=== PATIENT | male | born 1950 | race Caucasian/White ===

== ENCOUNTER 2019-05-15 19:56 | Emergency (ER) | payer MEDICARE, BC ==
[~2019-05-15] VITALS: Ht 177.8 cm; Wt 100.0 kg
--- NOTE | 2019-05-15 20:16 | ED Chest Pain ---
General Stated Complaint: CHEST PAIN Source: patient, EMS History of Present Illness Date Seen by Provider: May 15, 2019 Time Seen by Provider: 19:57 Initial Comments 68 yo M presents with substernal chest pain that is an aching pain. 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 He denies doing anything prior to onset of pain and was just sitting at rest when the pain came on. He did take 2 aspirin at home when the pain started. He denies anything making the pain worse. He has had the pain easing up since onset. He has no nausea and no shortness of breath. He did have a tooth extraction yesterday but states he is not taking any medicine for that. he has no cardiac history and denies any history of hypertension or diabetes. he reports a hx of seizures that he takes ativan for but has not had a seizure for a long time. Jamie bruce follows with Sera Can APRN in the [facility] clinic for routine care. He has a family hx of CAD in his father who lived to be 93 yo before he . Allergies and Home Medications Allergies Coded Allergies: No Known Drug Allergies (Unverified , 05/15/19) Patient Home Medication List Home Medication List Reviewed: Yes Review of Systems Review of Systems Constitutional: No chills, No fever, No malaise EENTM: See HPI Respiratory: No Symptoms Reported Cardiovascular: See HPI Gastrointestinal: No Symptoms Reported Genitourinary: No Symptoms Reported Musculoskeletal: no symptoms reported Skin: no symptoms reported Psychiatric/Neurological: No Symptoms Reported Past [id number] Hx Past Med/Social Hx: Reviewed Nursing Past Med/Soc Hx Patient Social History Recent Foreign Travel: No Contact w/Someone Who Travel: No Past Medical History Surgeries: Yes (dental extraction) Neurological: Yes Seizure Disorder Family Medical History CAD Over 55 Years Old Physical Exam Vital Signs Vital Signs - First Documented Capillary Refill : Height, Weight, BMI Height: '" Weight: lbs. oz. kg; BMI Method: General Appearance: No Apparent Distress, WD/WN HEENT: PERRL/EOMI, Other (healing dental extraction where he had tooth #12 removed) Neck: Non Tender, Supple; No Carotid Bruit Respiratory: Chest Non Tender, Lungs Clear, Normal Breath Sounds, No Accessory Muscle Use, No Respiratory Distress Cardiovascular: Regular Rate, Rhythm, Normal Peripheral Pulses Gastrointestinal: Normal Bowel Sounds, Non Tender, Soft Extremity: Normal Capillary Refill, Non Tender, No Calf Tenderness, No Pedal Edema Neurologic/Psychiatric: Alert, Oriented x3 Skin: Normal Color, Warm/Dry Progress/Results/Core Measures Results/Orders Lab Results Laboratory Tests Test 05/15/19 20:12 Range/Units White Blood Count 9.3 4.3-11.0 10^3/uL Red Blood Count 5.16 4.35-5.85 10^6/uL Hemoglobin 16.5 13.3-17.7 G/DL Hematocrit 47 40-54 % Mean Corpuscular Volume 90 80-99 FL Mean Corpuscular Hemoglobin 32 25-34 PG Mean Corpuscular Hemoglobin Concent 35 32-36 G/DL Red Cell Distribution Width 12.3 10.0-14.5 % Platelet Count 211 130-400 10^3/uL Mean Platelet Volume 10.3 7.4-10.4 FL Neutrophils (%) (Auto) 60 42-75 % Lymphocytes (%) (Auto) 30 12-44 % Monocytes (%) (Auto) 7 0-12 % Eosinophils (%) (Auto) 3 0-10 % Basophils (%) (Auto) 0 0-10 % Neutrophils # (Auto) 5.6 1.8-7.8 X 10^3 Lymphocytes # (Auto) 2.8 1.0-4.0 X 10^3 Monocytes # (Auto) 0.6 0.0-1.0 X 10^3 Eosinophils # (Auto) 0.3 0.0-0.3 10^3/uL Basophils # (Auto) 0.0 0.0-0.1 10^3/uL Prothrombin Time 12.4 12.2-14.7 SEC INR Comment 0.9 0.8-1.4 Activated Partial Thromboplast Time 26 24-35 SEC Sodium Level 139 135-145 MMOL/L Potassium Level 3.8 3.6-5.0 MMOL/L Chloride Level 104 98-107 MMOL/L Carbon Dioxide Level 21 21-32 MMOL/L Anion Gap 14 5-14 MMOL/L Blood Urea Nitrogen 16 7-18 MG/DL Creatinine 0.89 0.60-1.30 MG/DL Estimat Glomerular Filtration Rate > 60 BUN/Creatinine Ratio 18 Glucose Level 121 H 70-105 MG/DL Calcium Level 9.9 8.5-10.1 MG/DL Corrected Calcium 9.5 8.5-10.1 MG/DL Magnesium Level 2.0 1.6-2.4 MG/DL Total Bilirubin 0.4 0.1-1.0 MG/DL Aspartate Amino Transf (AST/SGOT) 29 5-34 U/L Alanine Aminotransferase (ALT/SGPT) 25 0-55 U/L Alkaline Phosphatase 52 40-136 U/L Troponin I < 0.30 <0.30 NG/ML Pro-B-Type Natriuretic Peptide < 75.0 <75.0 PG/ML Total Protein 7.7 6.4-8.2 GM/DL Albumin 4.5 3.2-4.5 GM/DL My Orders Orders - GEMA JACKSON MD Cbc With Automated Diff (05/15/19 20:09) Magnesium (05/15/19 20:) Ekg Tracing (05/15/19 20:09) Comprehensive Metabolic Panel (05/15/19 20:) Protime With Inr (05/15/19 20:) Partial Thromboplastin Time (05/15/19 20:) Monitor-Rhythm Ecg Trace Only (05/15/19 20:09) Ed Iv/Invasive Line Start (05/15/19 20:09) Troponin I Fs (05/15/19 20:09) Probnp Fs (05/15/19 20:09) Vital Signs/I&O 05/15/19 05/15/19 05/15/19 19:58 19:58 21:28 Temp 36.3 35.9 Pulse 61 56 Resp 18 18 B/P (MAP) 168/82 (110) 156/90 (110) Pulse Ox 98 98 O2 Delivery Room Air Room Air Room Air Progress Progress Note #1: Progress Note Order basic tests to evaluate for his chest aching and pain. pt states he was not going to come to the ED after finding out that his ECG was ok at home by EMS but because his bp was elevated he decided to come be evaluated. Initially his chest aching was around 5/10 and now is down to 2 or 3 out of 10 in intensity. Ordered labs including cardiac enzymes, ECG and CXR to evaluate for his heart and lungs to look for reasons why he would be having pain and might be having elevated blood pressure. After placing the orders the patient refused the chest x-ray as part of his work up for his evaluation of chest pain and elevated blood pressure. Progress Note #2: Progress Note reviewed results with pt that his labs did not show elevated troponin and ECG was not showing acute MD or need to vela to a cathode builder but I did not have an e xplanation for his chest aching or elevated blood pressure without doing further testing. I could check to see if he had any change with repeating enzymes after more time or try treating for GI source of pain to see if that changed his symptoms and bp but pt refused. He was reassured that the initial testing looked ok and was wanting to go home. I counseled him to return if he had further symptoms or more problems, especially if he started sweating with the pain, having n/v or pain radiating to other areas such as his back, arm, neck or jaw. Follow up with pcp for continued concerns and check his pressure at home or through pharmacy bp cuffs. Return or seek medical care for worsening or new or recurent symptoms. Initial ECG Impression Date: May 15, 2019 Initial ECG Impression Time: 20:10 Initial ECG Rate: 58 Initial ECG Rhythm: Normal Sinus Initial ECG Comparisson: No Previous ECG Available Comment Normal sinus rhythm with a heart rate of 58 beats for minute. He has an incomplete left bundle-branch block. He has a OK interval of 179 ms. QT interval 424 ms QTc interval 417 ms. There is no acute ST elevation. He has no prior tracing available for comparison. Departure Impression Primary Impression: Atypical chest pain Additional Impression: Elevated blood pressure reading Disposition: 01 HOME, SELF-CARE Condition: Stable Departure-Patient Inst. Decision time for Depature: 21:27 Referrals: NO,LOCAL PHYSICIAN (PCP) Primary Care Physician [facility] Patient Instructions: Chest Pain (DC), High Blood Pressure (DC) Add. Discharge Instructions: Try medicine for acid reflux at home. If the pain worsens or is not improving then return or seek medical care for rec heck Follow up with Sera Can in the clinic for recheck GEMA JACKSON MD May 15, 2019 20:16
[2019-05-15 20:19] LABS: BASOPHILS % (AUTO) 0 % (0-10); EOSINOPHILS # (AUTO) 0.3 10^3/uL (0.0-0.3); EOSINOPHILS % (AUTO) 3 % (0-10); HEMATOCRIT 47 % (40-54); HEMOGLOBIN 16.5 G/DL (13.3-17.7); LYMPHOCYTES # (AUTO) 2.8 X 10^3 (1.0-4.0); LYMPHOCYTES % (AUTO) 30 % (12-44); MEAN CORPUSCULAR HEMOGLOBIN 32 PG (25-34); MEAN CORPUSCULAR HGB CONC 35 G/DL (32-36); MEAN CORPUSCULAR VOLUME 90 FL (80-99); MEAN PLATELET VOLUME 10.3 FL (7.4-10.4); MONOCYTES # (AUTO) 0.6 X 10^3 (0.0-1.0); MONOCYTES % (AUTO) 7 % (0-12); NEUTROPHILS # (AUTO) 5.6 X 10^3 (1.8-7.8); NEUTROPHILS % (AUTO) 60 % (42-75); PLATELET COUNT 211 10^3/uL (130-400); RED CELL DISTRIBUTION WIDTH 12.3 % (10.0-14.5); WHITE BLOOD COUNT 9.3 10^3/uL (4.3-11.0)
[2019-05-15 20:29] LABS: PROTHROMBIN TIME PATIENT 12.4 SEC (12.2-14.7)
[2019-05-15 20:30] LABS: INR 0.9 (0.8-1.4)
[2019-05-15 20:39] LABS: ALANINE AMINOTRANSFERASE 25 U/L (0-55); ALBUMIN 4.5 GM/DL (3.2-4.5); ALKALINE PHOSPHATASE 52 U/L (40-136); BILIRUBIN,TOTAL 0.4 MG/DL (0.1-1.0); BUN/CREATININE RATIO 18; CALCIUM 9.9 MG/DL (8.5-10.1); CARBON DIOXIDE 21 MMOL/L (21-32); CHLORIDE 104 MMOL/L (98-107); CREATININE SERUM 0.89 MG/DL (0.60-1.30); GFR ESTIMATED > 60; GLUCOSE 121 MG/DL (70-105); POTASSIUM 3.8 MMOL/L (3.6-5.0); SODIUM 139 MMOL/L (135-145); TOTAL PROTEIN 7.7 GM/DL (6.4-8.2)
[2019-05-15 21:28] VITALS: BP 156/90
== END 2019-05-15 21:31 | disposition home or self-care (01) ==
LOC: ER FS 20:00
DX: R07.89 Other chest pain (principal); R03.0 Elevated blood-pressure reading, without diagnosis of hypertension; G40.909 Epilepsy, unspecified, not intractable, without status epilepticus; Z82.49 Family history of ischemic heart disease and other diseases of the circulatory system
CPT/HCPCS: 36415; 80053; 83735; 83880; 84484; 85025; 85610; 85730; 93005; 93041